=== PATIENT | male | born 1970 | race Caucasian/White ===

== ENCOUNTER → 2023-11-07 06:22 | Day surgery (SDC) | payer OTHER, SELFPAY | LOC: GI 06:22 | PROVIDERS: ATTENDING PHYSICIAN Internal Medicine Gastroenterology; FAMILY PHYSICIAN Family Medicine | DX: Z12.11 Encounter for screening for malignant neoplasm of colon (principal); K64.0 First degree hemorrhoids; K62.1 Rectal polyp; K63.5 Polyp of colon | CPT/HCPCS: 45385; 45380; 88305 ==